=== PATIENT | male | born 1950 ===

== ENCOUNTER 2024-03-07 08:42 | Outpatient (CLI) | payer MEDICARE, BC ==
--- NOTE | 2024-03-07 16:17 | Ultrasound Report ---
PROCEDURE: Aorta Screening INDICATIONS: EX SMOKER TECHNIQUE: Real time scanning was performed of the aorta and iliac arteries, with image documentatio n. COMPARISON: None. FINDINGS: Aorta: Proximal aortic diameter measures 2.5 cm. Mid-aorta measures 2.4 cm. Distal aortic diameter is 2.0 cm. Iliac arteries: Right common iliac artery measures 1.4 cm. Left common iliac artery measures 1.4 cm . 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 Recommended intervals for follow-up imaging of ectatic aortas and abdominal aortic aneurysms, per ACR consensus guidelines: 2.5-2.9 cm: 5 years 3.0-3.4 cm: 3 years 3.5-3.9 cm: 2 years 4.0-4.4 cm: 1 year 4.5-4.9 cm: 6 months + endovascular referral 5.0-5.5 cm: 3-6 months + endovascular referral Reviewed by: Daniela Kim MD, PhD on 03/07/2024 4:16 PM PDT Approved by: Daniela Kim MD, PhD on 03/07/2024 4:16 PM PDT Station ID: [id number]
== END 2024-03-07 08:43 | disposition home or self-care (01) ==
LOC: DI 08:42
PROVIDERS: ATTEND Physician Assistant
DX: Z13.6 Encounter for screening for cardiovascular disorders (principal); Z87.891 Personal history of nicotine dependence; I77.811 Abdominal aortic ectasia